=== PATIENT | female | born 1995 ===

== ENCOUNTER 2016-12-29 07:21 | Inpatient (IN) ==
[2016-12-29] MEDS ORDERED: ceFAZolin 2,000 MG in PREMIX 1 EACH IV ONE (08:04)
[2016-12-29] MEDS ORDERED: CITRIC ACID/SODIUM CITRATE 30 ML UDCUP PO ONE (08:04)
[2016-12-29] MEDS ORDERED: FAMOTIDINE 20 MG/2 ML VIAL IV ONE (08:04)
[2016-12-29] MEDS ORDERED: OXYTOCIN/LR 30 UNIT/1,000 ML BAG IV ONE (08:05)
[2016-12-29] MEDS ORDERED: OXYTOCIN 10 UNIT/ML VIAL IM ONE (08:05)
[2016-12-29] MEDS ORDERED: LACTATED RINGERS 1,000 ML IV ONE (08:11)
[2016-12-29 08:15] LABS: Basophils % 0.4 % (0.0-0.8); Eosinophils # 0.1 10*3/uL (0.0-0.87); Eosinophils % 1.1 % (0.00-10.9); Hematocrit 34.2 VOL% (35.7-47.0); Hemoglobin 11.3 GM/DL (12.0-16.0); Immature Granulocytes % 0.4 %; Immature Granulocytes Absolute 0.03 #; Lymphocytes # 2.8 10*3/uL (1.4-4.0); Mean Corpuscular Hemoglobin 28 PG (27-34); Mean Corpuscular Volume 83.2 FL (87-102); Mean Platelet Volume 10.8 FL (9.6-12.0); Monocytes # 0.4 10*3/uL (0.11-0.8); Monocytes % 5.3 % (1.7-12.7); Neutrophils # 4.2 10*3/uL (1.4-7.4); Neutrophils % 55.8 % (38.7-73.9); Platelet Count 283 T/CUMM (130-400); Red Blood Count 4.11 MC/CUMM (3.8-5.5); Red Cell Distribution Width 14.3 % (9.3-17.3); White Blood Count 7.6 T/CUMM (4-12)
[2016-12-29 08:19] LABS: Apearance,Urine CLEAR (Clear); Bilirubin,Urine Negative (Negative); Blood, Urine Negative (Negative); Glucose,Urine (UA) Negative (Negative); Ketones,Urine 5 mg/dL (Negative); Mucus,Urine Occasional /LPF (Occasional); Nitrite,Urine Negative (Negative); Protein,Urine Negative; RBC,Urine 3 /HPF (0-4); Squamous Epithelial Cell,Urine Occasional /HPF (0-10); Urine Color Yellow (Yellow); Urine Specific Gravity 1.021 (1.001-1.035); WBC,Urine 2 /HPF (0-6)
[2016-12-29 08:25] LABS: INR 0.9; PT Patient Result 9.3 SECS; Partial Thromboplastin Time 25.7 SECS (0-40)
[2016-12-29] MEDS ORDERED: LACTATED RINGERS 1,000 ML IV SCH ×2 (08:30→14:00)
[2016-12-29 08:53] LABS: Alanine Aminotransferase 20 U/L (13-56); Albumin 2.7 G/DL (3.4-5.0); Alkaline Phosphatase 302 U/L (45-117); Aspartate Amino Transferase 19 U/L (0-37); Bilirubin,Total < 0.39 MG/DL (0.2-1.0); Blood Urea Nitrogen 9 MG/DL (7-18); Calcium 8.9 MG/DL (8.5-10.1); Glucose 75 MG/DL (74-106); Osmolality,Calculated 272.7 MOS/KG (273-304); Potassium 3.9 MMOL/L (3.5-5.1); Sodium 138 MMOL/L (136-145); Total Protein 7.9 G/DL (6.4-8.3)
[2016-12-29] MEDS ORDERED: ONDANSETRON 4 MG/2 ML VIAL ONE (12:45)
[2016-12-29] MEDS ORDERED: SIMETHICONE CHEW 80 MG TABLET PO PRN (13:48)
[2016-12-29] MEDS ORDERED: OXYTOCIN/LR 20 UNIT/1,000 ML BAG IV ONE (13:48)
[2016-12-29] MEDS ORDERED: IBUPROFEN 800 MG TABLET PO PRN (13:48)
[2016-12-29] MEDS ORDERED: ONDANSETRON 4 MG/2 ML VIAL IV PRN (13:48)
[2016-12-29] MEDS ORDERED: RHO(D) IMMUNE GLOBULIN 300 MCG SYRINGE IM ONE (13:48)
[2016-12-29] MEDS ORDERED: ACETAMINOPHEN 325 MG TABLET PO PRN (13:48)
[2016-12-29] MEDS ORDERED: MORPHINE 10 MG/10 ML VIAL ONE (13:56)
[2016-12-29] MEDS ORDERED: ePHEDrine 50 MG/ML AMP ONE (13:57)
[2016-12-29] MEDS ORDERED: fentaNYL 100 MCG/2 ML VIAL ONE (13:57)
[2016-12-29 14:07] LABS: Cord Arterial Blood HCO3 19.3 MMOL/L
[2016-12-29 14:10] LABS: Cord Venous Blood HCO3 20.9 MMOL/L; Cord Venous Blood PCO2 41.3 MMHG; Cord Venous Blood PO2 36.7
[2016-12-29] MEDS ORDERED: PROMETHAZINE 25 MG/1 ML VIAL IM ONE (14:35)
[2016-12-29] MEDS: DOCUSATE SODIUM 100 MG CAPSULE PO SCH (21:59)
[2016-12-29 23:14] LABS: Basophils % 0.4 % (0.0-0.8); Eosinophils % 0.1 % (0.00-10.9); Hematocrit 31.9 VOL% (35.7-47.0); Hemoglobin 9.7 GM/DL (12.0-16.0); Immature Granulocytes % 0.4 %; Immature Granulocytes Absolute 0.04 #; Lymphocytes # 2.1 10*3/uL (1.4-4.0); Lymphocytes % 21.4 % (21.3-54.2); Mean Corpuscular HGB Conc 30.4 GM/DL (32-36); Mean Corpuscular Hemoglobin 27 PG (27-34); Mean Corpuscular Volume 89.4 FL (87-102); Mean Platelet Volume 10.7 FL (9.6-12.0); Monocytes # 0.6 10*3/uL (0.11-0.8); Monocytes % 6.4 % (1.7-12.7); Neutrophils # 6.9 10*3/uL (1.4-7.4); Neutrophils % 71.3 % (38.7-73.9); Platelet Count 245 T/CUMM (130-400); Red Blood Count 3.57 MC/CUMM (3.8-5.5); Red Cell Distribution Width 14.4 % (9.3-17.3); White Blood Count 9.6 T/CUMM (4-12)
[2016-12-30 05:26] LABS: Basophils % 0.4 % (0.0-0.8); Eosinophils # 0.1 10*3/uL (0.0-0.87); Eosinophils % 0.7 % (0.00-10.9); Hematocrit 25.9 VOL% (35.7-47.0); Hemoglobin 8.6 GM/DL (12.0-16.0); Immature Granulocytes % 0.3 %; Immature Granulocytes Absolute 0.02 #; Lymphocytes # 2.3 10*3/uL (1.4-4.0); Lymphocytes % 31.2 % (21.3-54.2); Mean Corpuscular HGB Conc 33.2 GM/DL (32-36); Mean Corpuscular Hemoglobin 27 PG (27-34); Mean Corpuscular Volume 81.4 FL (87-102); Mean Platelet Volume 10.5 FL (9.6-12.0); Monocytes # 0.7 10*3/uL (0.11-0.8); Monocytes % 8.7 % (1.7-12.7); Neutrophils # 4.4 10*3/uL (1.4-7.4); Neutrophils % 58.7 % (38.7-73.9); Platelet Count 243 T/CUMM (130-400); Red Blood Count 3.18 MC/CUMM (3.8-5.5); Red Cell Distribution Width 14.4 % (9.3-17.3); White Blood Count 7.5 T/CUMM (4-12)
[2016-12-30] MEDS: DOCUSATE SODIUM 100 MG CAPSULE PO SCH ×2 (08:55→22:02)
[2016-12-30] MEDS: FERROUS SULFATE 325 MG TABLET PO SCH ×3 (08:55→22:02)
[2016-12-30] MEDS: MULTIVITAMIN (PRENATAL) TABLET PO SCH (08:55)
[2016-12-30] MEDS: MAGNESIUM HYDROXIDE SUSP 30 ML UDCUP PO PRN ×2 (08:55→22:02)
[2016-12-31 07:31] VITALS: BP 105/63
[2016-12-31] MEDS: MULTIVITAMIN (PRENATAL) TABLET PO SCH (08:58)
[2016-12-31] MEDS: DOCUSATE SODIUM 100 MG CAPSULE PO SCH (08:59)
[2016-12-31] MEDS: FERROUS SULFATE 325 MG TABLET PO SCH (08:59)
[2016-12-31] MEDS ORDERED: INFLUENZA VIRUS VACCINE 0.5 ML SYRINGE IM ONE ×2 (10:00→13:30)
== END 2016-12-31 13:30 | disposition home or self-care (01) | DRG 766 ==
LOC: N.LD 07:21 → N.OB 18:03
PROVIDERS: ADMIT Obstetrics & Gynecology; ATTEND Obstetrics & Gynecology
PROC: LDCSECT (ICD-10-PCS; 2016-12-29 09:25)